=== PATIENT | female | born 1970 | race Caucasian/White ===

== ENCOUNTER → 2017-04-18 | Outpatient (CLI) | payer BC ==
[~2017-04-18] MED LIST: Gentak3.5 GM RIGHTEYE; NAPR550 PO; RXNAPNA550 PO
[2017-04-18 14:54] LABS: Candida species (DNA Probe) Negative (NEGATIVE); G. vaginalis (DNA Probe) Positive (NEGATIVE); T. vaginalis (DNA Probe) Negative (NEGATIVE)
== END ==
LOC: LAB 12:20 → LAB SHORT 12:20
PROVIDERS: Registered Nurse Community Health
DX: A59.00 Urogenital trichomoniasis, unspecified (principal)
CPT/HCPCS: 87480; 87510; 87660

== ENCOUNTER 2017-07-20 09:00 | Emergency (ER) | payer OTHER, BC ==
[~2017-07-20] VITALS: Ht 167.6 cm; Wt 70.3 kg
== END 2017-07-20 09:48 | disposition home or self-care (01) ==
LOC: ER 09:00
DX: S50.01XA Contusion of right elbow, initial encounter (principal); W22.8XXA Striking against or struck by other objects, initial encounter
CPT/HCPCS: 99282

== ENCOUNTER 2022-09-06 21:27 | Emergency (ER) | payer OTHER ==
[~2022-09-06] VITALS: Ht 167.6 cm; Wt 65.8 kg
[2022-09-06 21:38] VITALS: BP 161/95
[2022-09-07] MEDS ORDERED: EPIPEN0.3 MG/0.1 IM (01:30)
[2022-09-07] MEDS ORDERED: FAMO20 PO (01:30)
[2022-09-07] MEDS ORDERED: PRED20 PO (01:30)
[2022-09-07] MEDS ORDERED: BENADRYL25 M1 PO (01:30)
== END 2022-09-07 01:41 | disposition home or self-care (01) ==
LOC: ER 21:27
DX: T63.461A Toxic effect of venom of wasps, accidental (unintentional), initial encounter (principal); Z91.030 Bee allergy status
CPT/HCPCS: 99281; A9270; J1100